=== PATIENT | female | born 1960 | race Caucasian/White ===

== ENCOUNTER 2024-02-19 13:58 | Outpatient (CLI) | payer MEDICARE | END 2024-02-19 13:59 | disposition home or self-care (01) | LOC: CSHMAMMO 13:58 | PROVIDERS: ATTEND Family Medicine | DX: Z12.31 Encounter for screening mammogram for malignant neoplasm of breast (principal); Z13.820 Encounter for screening for osteoporosis; M81.0 Age-related osteoporosis without current pathological fracture; M85.89 Other specified disorders of bone density and structure, multiple sites; Z78.0 Asymptomatic menopausal state | CPT/HCPCS: 77063; 77067; 77080 ==

== ENCOUNTER 2024-08-11 14:31 | Outpatient (CLI) | payer MEDICARE ==
[2024-08-11 16:16] LABS: Hematocrit 41.2 % (34.9-44.5); Hemoglobin 13.2 g/dL (12.0-15.5); Mean Corpuscular Hemoglobin 26.3 pg (27.0-33.0); Mean Corpuscular Volume 82.1 fL (81.6-98.3); Mean Platelet Volume 12.2 fL (7.4-10.4); Platelet Count 163 10x3/uL (150-450); RBC Distribution Width 14.9 % (11.5-14.5); Red Blood Cell (RBC) Count 5.02 10x6/uL (3.90-5.03); White Blood Cell (WBC) Count 7.5 10x3/uL (3.5-10.5)
[2024-08-11 16:26] LABS: Anion Gap 13 mmol/L (10-20); BUN (Urea Nitrogen) 15 mg/dL (9.8-20.1); Calc. Creatinine Clearance 0 mL/min (70-130); Carbon Dioxide 28 mmol/L (23-31); Chloride 106 mmol/L (98-107); Estimated GFR 88; Glucose 84 mg/dL (80-115); Potassium 4.1 mmol/L (3.5-5.1); Sodium 143 mmol/L (136-145)
== END 2024-08-11 14:32 | disposition home or self-care (01) ==
LOC: CSHLAB 14:31
PROVIDERS: ATTEND Specialist
DX: Z01.818 Encounter for other preprocedural examination (principal); J34.3 Hypertrophy of nasal turbinates; J32.4 Chronic pansinusitis
CPT/HCPCS: 80048; 85027; 93005; 93010

== ENCOUNTER 2024-08-20 10:47 | Day surgery (SDC) | payer MEDICARE ==
[2024-08-11 16:30] VITALS: BMI 31.3
[2024-08-20] MEDS ORDERED: AFRIN NASAL MIST 15 ML BOT ONE (12:07)
[2024-08-20] MEDS ORDERED: Lidocaine 1% w/Epinephrine 1:200K 30 ML VIAL ONE (12:26)
[2024-08-20] MEDS ORDERED: EPINEPHrine 1 MG/ML VIAL ONE (12:26)
[2024-08-20] MEDS ORDERED: fentaNYL 50 mcg/mL 1 mL Vial ONE ×2 (13:58→15:53)
[2024-08-20] MEDS ORDERED: methylPREDNISolone Acetate 40 mg/ml Vial ONE (14:18)
[2024-08-20] MEDS ORDERED: ePHEDrine Sulfate 50 MG/10 ML VIAL ONE (14:26)
[2024-08-20] MEDS ORDERED: Mupirocin 2% Ointment 22 GM Tube ONE (14:37)
[2024-08-20] MEDS ORDERED: Esmolol 100 MG/10 ML VIAL ONE (14:39)
[2024-08-20] MEDS ORDERED: Oxymetazoline HCl 0.05% ( 15 ML ) ONE (14:56)
[2024-08-20] MEDS ORDERED: Ipratropium/Albuterol 3 ML NEB ONE (15:26)
[2024-08-20] MEDS ORDERED: HYDROcodone/Acetaminophen 5/325 mg Tablet ONE (16:28)
== END 2024-08-20 17:11 | disposition home or self-care (01) ==
LOC: CSHSDC 10:47
PROVIDERS: ATTEND Specialist
PROC: 09TV8ZZ Resection of Left Ethmoid Sinus, Via Natural or Artificial Opening Endoscopic (ICD-10-PCS; principal; 2024-08-20)
PROC: 09TW8ZZ Resection of Right Sphenoid Sinus, Via Natural or Artificial Opening Endoscopic (ICD-10-PCS; 2024-08-20)
PROC: 09TX8ZZ Resection of Left Sphenoid Sinus, Via Natural or Artificial Opening Endoscopic (ICD-10-PCS; 2024-08-20)
PROC: 09TQ8ZZ Resection of Right Maxillary Sinus, Via Natural or Artificial Opening Endoscopic (ICD-10-PCS; 2024-08-20)
PROC: 09TR8ZZ Resection of Left Maxillary Sinus, Via Natural or Artificial Opening Endoscopic (ICD-10-PCS; 2024-08-20)
PROC: 09TS8ZZ Resection of Right Frontal Sinus, Via Natural or Artificial Opening Endoscopic (ICD-10-PCS; 2024-08-20)
PROC: 09TT8ZZ Resection of Left Frontal Sinus, Via Natural or Artificial Opening Endoscopic (ICD-10-PCS; 2024-08-20)
PROC: 09TU8ZZ Resection of Right Ethmoid Sinus, Via Natural or Artificial Opening Endoscopic (ICD-10-PCS; 2024-08-20)
PROC: 09TL8ZZ Resection of Nasal Turbinate, Via Natural or Artificial Opening Endoscopic (ICD-10-PCS; 2024-08-20)
PROC: 09BM8ZZ Excision of Nasal Septum, Via Natural or Artificial Opening Endoscopic (ICD-10-PCS; 2024-08-20)
DX: J34.3 Hypertrophy of nasal turbinates (principal); J32.4 Chronic pansinusitis; H91.93 Unspecified hearing loss, bilateral; I10 Essential (primary) hypertension; E78.5 Hyperlipidemia, unspecified; K21.9 Gastro-esophageal reflux disease without esophagitis; M19.90 Unspecified osteoarthritis, unspecified site; J44.9 Chronic obstructive pulmonary disease, unspecified; Z87.891 Personal history of nicotine dependence; I25.10 Atherosclerotic heart disease of native coronary artery without angina pectoris; F32.A Depression, unspecified; K25.9 Gastric ulcer, unspecified as acute or chronic, without hemorrhage or perforation; Z98.890 Other specified postprocedural states; Z90.710 Acquired absence of both cervix and uterus; Z88.8 Allergy status to other drugs, medicaments and biological substances; Z88.5 Allergy status to narcotic agent; Z79.82 Long term (current) use of aspirin; Z79.899 Other long term (current) drug therapy
CPT/HCPCS: 30140; 30520; 31256; 31257; 31276; 61782; J0171; J1010; J3010; J7620